=== PATIENT | female | born 1960 | race American Indian/Alaskan Native ===

== ENCOUNTER 2018-06-25 10:55 | Outpatient (CLI) | payer BC | END 2018-06-25 10:56 | disposition home or self-care (01) | LOC: C.RADH 10:55 ==

== ENCOUNTER 2018-07-17 09:25 | Outpatient (CLI) | payer BC | END 2018-07-17 09:26 | disposition home or self-care (01) | LOC: C.PAT 09:25 | DX: S83.231A Complex tear of medial meniscus, current injury, right knee, initial encounter (principal); S83.271A Complex tear of lateral meniscus, current injury, right knee, initial encounter; M67.51 Plica syndrome, right knee; M67.861 Other specified disorders of synovium, right knee ==

== ENCOUNTER 2018-08-03 07:12 | Day surgery (SDC) | payer BC ==
[2018-07-17 09:38] VITALS: BMI 29.3
[2018-08-03] MEDS ORDERED: ceFAZolin 1 gm in NS 2 GM/200 ML BAG IVPB ONE (10:12)
[2018-08-03] MEDS ORDERED: Midazolam 2 MG/2 ML VIAL ONE (11:57)
[2018-08-03] MEDS ORDERED: Propofol 10 mg/ml Inj (20 ML) ONE (11:58)
[2018-08-03] MEDS ORDERED: ceFAZolin 1 gm in NS 1 GM/100 ML BAG IVPB ONE (12:24)
[2018-08-03] MEDS ORDERED: Succinylcholine Chloride 20 mg/ml Syr (5 ml) IV ONE (12:41)
[2018-08-03] MEDS ORDERED: Rocuronium 10 mg/ml (10 ml) ONE ×2 (12:41→14:12)
[2018-08-03] MEDS ORDERED: Oxycodone/Acetaminophen 5/325 mg Tab PO PRN ×2 (14:54)
[2018-08-03] MEDS ORDERED: Neostigmine 1:1000 (1 mg/ml) Inj ONE (15:05)
[2018-08-03] MEDS ORDERED: Midazolam 2 MG/2 ML VIAL IVP PRN (15:22)
[2018-08-03] MEDS ORDERED: Lactated Ringer's 1,000 ML IV ONE (15:23)
[2018-08-03] MEDS: HYDROmorphone 0.5 mg/0.5 ml ISec IVP PRN ×2 (16:18→16:55)
[2018-08-03] MEDS ORDERED: Ropivacaine 0.5% PF (20 ml) inj INJ ONE (16:39)
--- NOTE | 2018-08-03 17:08 | PCM.ANESB7 ---
Adductor Canal Block - Adductor Canal Block Date of Procedure: 08/03/18 Anesthiologist: Zulema Pre-Procedure Diagnosis: Right Meniscal Tear Post-Procedure Diagnosis: Right Meniscal Tear Procedure Performed: Adductor Canal Block Right - Procedure Adductor Canal Block: The procedure was explained to the patient that it is for the post-operative pain management. Consent was obtained after a thorough discussion with the patient regarding the benefits and possible complications of local anesthetic adductor canal block of the femoral nerve. Standard monitors, as defined by the ASA, were applied to the patient. Time-out was held with the circulating nurse to confirm the appropriate block. After applying supplemental oxygen and administering IV Sedation as needed, the patient was placed in supine position with and the operative leg was flexed slightly at the knee and externally rotated as needed, and was kept anatomically stable. The mid-thigh of the __right__ lower extremity was exposed. The ultrasound transducer was then applied transversely along the medial aspect, about midway down the thigh and the femoral artery and vein were identified in appropriate relation with the sartorius muscle. At this time, the femoral nerve was visualized lateral to the femoral artery within the canal. After thorough identification, this area area was prepped with Chloroprep solution three times and 1 % Lidocaine was injected subcutaneously for topical anesthesia. At this point, a #22 gauge Stimuplex 4-inch needle was inserted in-plane in a [id number] orientation, and advanced toward the femoral nerve. Advancement was performed carefully under direct ultrasound visualization. After negative aspiration, __20_cc of _0.5_% _ropivicaine was injected. Under ultrasound guidance the local anesthetics were observed spreading around the femoral nerve. The needle was removed intact and sterile dressing was applied. The patient had stable vital signs, was conscious and in no apparent distress.
[2018-08-03 18:11] VITALS: RESP 16
[2018-08-03 18:57] VITALS: BP 143/81; PULSE 81; TEMP 97.9; O2SAT 97
--- NOTE | 2018-08-05 02:35 | PCM.SURG1 ---
Surgeon's Initial Post Op Note - Surgeon's Notes Surgeon: Tu Oleary MD Iron Installer: Juan Gomes PA-C Type of Anesthesia: General Endo, Block [facility] Pre-Operative Diagnosis: Right knee: #1 medial meniscal tear. #2 lateral mensical tear. #3 possible partial ACL tear (clinical instability grade 2). #4 synovitis. #5 chondromalacia. #6 valgus alignment Operative Findings: Right knee: #1 medial meniscal tear (2 zones of injury= free edge complex tear, white-white zone, not repairable/ peripheral red-red zone posterior horn menisco-capsular seperation, repairable). #2 lateral mensical tear (4 zones of injury= posterior horn/mid-body/ anterior horn complex, segmental, flap tears, not repairable/ peripheral red-red zone posterior horn tear w/ hypermobility, repairable-stabilized). #3 Complete ACL tear (both bundles, complete avulsion from LFC insertion, scared down to posterior capsule, PCL, and MFC/ remnant fibers good quality, amenable to primary repair). #4 synovitis all 3 compartments. 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 #6 lateral patellar maltracking grade 2. #7 symptomatic medial and lateral plica bands. #8 hypertrophic, inflamed anterior fat pad (causing anterior and PF impingement). #9 valgus alignment Post-Operative Diagnosis: Right knee: #1 medial meniscal tear (2 zones of injury= free edge complex tear, white-white zone, not repairable/ peripheral red-red zone posterior horn menisco-capsular seperation, repairable). #2 lateral mensical tear (4 zones of injury= posterior horn/mid-body/ anterior horn complex, segmental, flap tears, not repairable/ peripheral red-red zone posterior horn tear w/ hypermobility, repairable-stabilized). #3 Complete ACL tear (both bundles, complete avulsion from LFC insertion, scared down to posterior capsule, PCL, and MFC/ remnant fibers good quality, amenable to primary repair). #4 synovitis all 3 compartments. 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 #6 lateral patellar maltracking grade 2. #7 symptomatic medial and lateral plica bands. #8 hypertrophic, inflamed anterior fat pad (causing anterior and PF impingement). #9 valgus alignment Operation Performed: Right knee Arthroscopic: #1 primary ACL repair. #2 all inside medial meniscal repair. #3 partial lateral menisectomy. #4 lateral retinacular release. #5 extensive synovectomy all 3 compartments. #6 resection medial and lateral plica bands. #7 resection and debridement hypertrophic fat pad. #8 chondroplasty and microfracture LFC & lateral plateau. #9 intra- articular PRP injection Specimen/Specimens Removed: specimen= none. tourniquet time= 0min. complications= none. Implants: #1 Arthrex 4.75 mm biocomposite swivel lock anchors x2 and fiberwire for ACl repair. #2 Linvatex meniscal repair system, 8 implants used for MMR (2 kits), 4 implants used for LM stabilization after PLM (1 kit). I personally examined the pt post-op in PACU, NVI post-op. +5/5 motor function,. DPN/TN/SPN sensory intact,. 2+ DP & PT pulses, BCR all toes Estimated Blood Loss: EBL {In ML}: 3 Blood Products Given: N/A Drains Used: No Drains Post-Op Condition: Good Date of Surgery/Procedure: 08/03/18 Time of Surgery/Procedure: 12:00
--- NOTE | 2018-08-05 14:35 | OP ---
PROCEDURE DATE: 08/03/2018 PREOPERATIVE DIAGNOSES: Right knee: 1. Lateral meniscal tear. 2. Medial meniscal tear. 3. Possible partial anterior cruciate ligament tear (clinical instability grade 2). 4. Synovitis. 5. Chondromalacia. 6. Valgus alignment. POSTOPERATIVE DIAGNOSES: Right knee: 1. Medial meniscal tear (two zones of injury = free edge complex tear, white-white zone, not repairable/peripheral red-red zone, posterior horn meniscal capsular separation, repairable). 2. Lateral meniscal tear (four zones of injury = posterior horn/mid body/anterior horn complex, segmental, flap tears, not repairable/peripheral red-red zone, posterior horn tear with hypermobility, repairable-stabilized). 3. Complete anterior cruciate ligament tear (both bundles showed complete evulsion from lateral femoral condyle insertion with remnant fibers of good quality scar down to posterior capsule, posterior cruciate ligament, medial femoral condyle/remnant fibers were of good quality and amendable to primary repair). 4. Synovitis, all three compartments. 5. Chondromalacia, lateral femoral condyle and lateral tibial plateau (focal areas of grade 4 full thickness, cartilage loss at lateral tibial plateau, posterior aspect measuring 3 mm x 6 mm and lateral femoral condyle anterior aspect measuring 5 mm x 5 mm). 6. Lateral patellar maltracking grade 2. 7. Symptomatic medial and lateral thickened plica bands. 8. Hypertrophic, inflamed anterior fat pad (causing anterior and patellofemoral impingement). 9. Valgus alignment. PROCEDURES: Right knee arthroscopic: 1. Primary anterior cruciate ligament repair. 2. All-inside medial meniscal repair. 3. Partial lateral meniscectomy. 4. Lateral retinacular release. 5. Extensive synovectomy, all three compartments. 6. Resection of medial and lateral symptomatic plica bands. 7. Resection and debridement of hypertrophic fat pad. 8. Chondroplasty and micro fracture, lateral femoral condyle and lateral tibial plateau. 9. Intraarticular platelet-rich plasma injection. SURGEON: Tu Oleary MD HOUSE BUILDER: Juan Gomes PA-C JUSTIFICATION FOR HOUSE BUILDER: Juan Gomes PA-C is a certified physician regulatory assistant whose skilled surgical assistance was an absolute necessity for successful completion of the procedure as he provided skilled surgical assistance with positioning of the patient, positioning of extremity, management of surgical youssef, retraction of neurovascular structures, preparation of remnant ACL fibers and successful primary ACL repair of both bundles, chondroplasty, and microfracture lateral femoral condyle and lateral tibial plateau, facilitating all-inside medial meniscus repair, partial lateral meniscectomy and lateral meniscus stabilization, handling of arthroscopic equipments and extensive synovectomy including resection of plica bands and hypertrophic fat pad, wound closure, fitting and placement in postop hinged knee brace. Juan Gomes, was present for the entire case and was an absolute necessity for successful completion of the procedure. TYPE OF ANESTHESIA: General endotracheal anesthesia with a postop regional nerve block placed by anesthesia staff in PACU. SPECIMENS: None. TOURNIQUET TIME: Zero minutes. COMPLICATIONS: None. ESTIMATED BLOOD LOSS: 3 mL. DRAINS: None. DISPOSITION: The patient was extubated and transferred to the PACU in stable condition and tolerated the procedure well. POSTOPERATIVE EXAMINATION: I personally examined the patient postop in PACU, right lower extremity was neurovascularly intact postop with +5/5 motor function all muscle groups, sensory intact, deep perineal nerves/tibial nerves/superficial perineal nerves, 2+ dorsalis pedis and posterior tibial pulses with brisk capillary refill all toes confirmed with Doppler by myself and nursing staff in PACU. IMPLANTS: 1. Arthrex 4.75 mm BioComposite SwiveLock anchors x2. 2. FiberWire suture for ACL repair. LinvateDattch: Sequent all-inside meniscal repair system with use of 8 implants used for medial meniscus repair (two kits), 4 implants used for lateral meniscus stabilization after partial lateral meniscectomy (1 kit opened). INDICATIONS FOR SURGERY: The patient is a 57-year-old female with past medical history significant for hypertension, hypercholesterolemia, who presented to the office for the first time under my care on 04/17/2018 with right knee pain since 02/11/2018. She states that she had a traumatic event where on 02/11/2018 she was walking down steps at home and missed steps resulting in twisting mechanism to her right knee. This resulted in progressively worsening pain, that by 02/13/2018, she actually required help from her to be carried into bed due to her right knee pain and instability as well as difficulty with weightbearing. She went to urgent care, [facility], where she was diagnosed with a sprain and instructed to follow up with an orthopedic surgeon as an outpatient. She also saw her primary care physician, Dr. Headley, who referred her for orthopedic evaluation. Evaluation/physical examination in the office on initial presentation on 02/15/2018 showed medial and lateral positive Maye and joint line tenderness with clicking and suspected medial and lateral meniscal tears, grade 2 ACL instability with an endpoint, overall valgus alignments. X-rays done in the office on 02/15/2018 showed joint spaces well maintained with no evidence of DJD, no fracture dislocation. Her pain continued to worsen, and on initial presentation in the office, she rated her pain as 7/10 at rest, worsening to 10/10 with increased activity and ambulation. She was having difficulty at work, she works as a [employer] tech for [employer] and was having difficulty with ADLs stating that this was a significant negative impact on her quality of life. We began her treatment with conservative treatment, consisting of initial cortisone intraarticular injection that resulted in reported near complete resolution of pain and fitting and placement in the Neoprene hinged knee brace for support/[id number] ACL brace to stabilize the knee and prevent from further injury as well as maximize the chances of successful conservative treatments. She was compliant with physical therapy, recommendation as well as Mobic, antiinflammatory medication and antiinflammatory cream. She underwent MRI of the right knee done at [facility] on 04/20/2018, which was read as: 1. Complex tear seen at the junction of the anterior horn and body of the lateral meniscus with additional globular increased signal extending into the anterior horn. At the level of the anterior horn, there is an adjacent 2.5 mm parameniscal cyst. 2. Moderate cartilage thinning and loss involving the lateral compartment of the femoral tibial joint space. In addition, there is osteochondral change, lateral proximal tibia. 3. Moderate great sprain of MCL. 4. Linear increased signal seen within the posterior horn of the medial meniscus suggestive for grade I intrasubstance degeneration and/or intrasubstance partial tearing. Adjacent moderate great strain at the posterior meniscal capsular junction. 5. Thickening with increased signal seen at the medial and lateral patellar retinaculum suggestive for moderate grade sprains. 6. Mild cartilage thinning involving the medial compartment. 7. Small superpatellar joint effusion. 8. Small posterior Hart cyst. 9. We continued with maximizing her conservative treatment as much as possible over the next five months. She underwent multiple cortisone mixture injection, including right knee cortisone mixture injection on 02/15/2018, 05/17/2018, 06/07/2018, and 07/09/2018. Each injection resulted in near complete resolution of pain that would last approximately 1 to 2 weeks and progressively return back to baseline level of pain and dysfunction. She was compliant with physical therapy recommendations despite the fact that she reported physical therapy making her pain worse. Finally after failing conservative treatment for five months post injury, she was indicative for right knee arthroscopic surgery including evaluation of ACL and possible ACL repair, medial and lateral meniscal repairs versus partial meniscectomy, cartilage treatment including chondroplasty versus microfracture, synovectomy, and all related indicated arthroscopic procedures. She was referred to her primary care physician, Dr. Headley for preoperative medical evaluation and clearance as well as PATs, and she was scheduled for surgery at [facility] on 08/03/2018. She watched surgical animation videos and diagnosis animation videos, and stated that she had a good understanding of the diagnosis as well as the procedure to be done. The risks, benefits, and alternatives to the procedure were discussed at length with the patient and her with the risks including, but not limited to infection, neurovascular damage, need for further surgery, failure of repairs, advanced chondrolysis and degenerative wear, development of blood clots including DVT and PE, development of chronic pain and disability, stiffness, need for manipulation under anesthesia, inability to return to preinjury level of activity, and occupation, anesthesia reactions including . After answering all of her questions, she stated that she had a good understanding of the risks and accepted the risks and wished to proceed with surgery. I also spent a significant amount of time, revealing the postoperative rehabilitation protocol and she stated that she had a good understanding of the protocol and the need for compliance with protocol in order to maximize the chances for successful outcome from surgery. Associated with the same date of injury, she also had significant progressively worsening right shoulder pain with MRI confirmation of a rotator cuff tear, labral tear, subacromial impingement, and bursitis with clinical biceps tendinitis. Right shoulder will be managed with conservative treatments including physical therapy and injections until she completely recovers from the right knee surgery, at which point we will consider arthroscopic right shoulder surgery if she is still in pain and failed conservative treatment. The rationale to perform the right knee surgery first was based on her report of which body part was causing more pain, and the fact that performing the right knee surgery after the shoulder surgery put potentially in danger and re-aggravate the shoulder with . We agreed on the above treatment plan. My review of the MRI of the right knee showed that there was significant peripheral signal change at the medial meniscus with a likely peripheral tear, lateral meniscus showed complex tearing throughout, ACL in my opinion had significant at least partial tearing with possible evulsion and good quality remnant fibers. Despite the radiologist's interpretation of intact ACL clinically she had consistent grade 2 instability with an endpoint. PROCEDURE IN DETAIL: The patient was identified in the preoperative holding area, and the right knee was marked for surgery. Once again as described above, the risks, benefits, and alternatives of the procedure were discussed at length with the patient and informed consent was obtained. After brief discussion with anesthesia staff, the patient was taken to the operating room and placed on a well-padded operating room table with all bony prominences and superficial neurovascular structures well padded. Initial time-out was done. General anesthesia was administered without difficulty or complications. EXAMINATION UNDER ANESTHESIA: Right knee with no swelling, no warmth, no erythema. Skin intact. Full range of motion compared to contralateral limb. Patella with grade 2 lateral maltracking and subluxation with no soledad instability noted, positive J sign, no crepitance with patella arch of range of motion. There was reproducible symptomatic plica bands throughout arch of range of motion most notable at 30 degrees flexion. There was significant ACL instability with grade 3 anterior drawer and neutral and external rotation, grade 2 anterior drawer and internal rotation with an endpoint, grade 2-3 Petey with an endpoint, grade 2 pivot shift, negative posterior drawer, negative reverse Petey, negative reverse pivot shift, negative posterolateral corner drawer test, negative dial test, negative recurvatum, negative opening to lateral or medial joint line at 0 or 30 degrees varus or valgus stress, there was overall mild valgus alignment. CONTINUATION OF PROCEDURE: Perioperative IV antibiotics were administered. Tourniquet was placed high on the right thigh, but never inflated. Right lower extremity was prepped and draped in a standard sterile fashion. Final time-out was done with the surgeon, anesthesia staff, OR staff, all in agreement with the patient, procedure being done, and extremity being operated on. A 50 mL of normal saline was used to insufflate the knee joint. Anterolateral portal was created with stab incision through the skin down to subcutaneous tissue down to the level of the capsule. Blunt arthroscopic trocar and cannula were inserted into the suprapatellar pouch, and insufflation with arthroscopic fluid was begun. Arthroscopic camera was inserted, and with the use of spinal needle localization, anterior medial portal location was identified and created with stab incision to skin down to subcutaneous tissue down to the level of capsule. An accessory cannula was inserted through the anteromedial portal, and the knee joint was copiously irrigated for removal of synovial debris and better visualization. With the use of an arthroscopic probe, a diagnostic arthroscopy was then carried out. DIAGNOSTIC ARTHROSCOPY: Attention was first turned towards the suprapatellar pouch where there was no evidence of adhesions or loose body, patellar femoral joint exhibited intact, patella and trochlea cartilage with grade 2 laterally subluxed patella with no soledad dislocation and instability seen. Attention was then turned towards the medial gutters where there was no evidence of loose bodies, but there was obvious thickened hypertrophic inflamed symptomatic medial plica band causing friction with the medial femoral condyle extending from the inferior medial aspect of the patella to the medial retinaculum. There was also a significant hypertrophic lateral symptomatic plica band causing the same constellation. Attention was then turned towards the medial compartment where intact medial femoral condyle and medial tibial plateau cartilage was seen. The medial meniscus after a careful evaluation showed a 2 cm peripheral red-red zone posterior horn tear at the meniscal capsular junction that was amenable to repair with good quality meniscal tissue present. The free edge of the medial meniscus displayed complex tearing at the white-white zone that was not amendable to repair. Attention was then turned towards the intercondylar notch, and the PCL was evaluated and found to be intact. ACL was carefully evaluated in detail, and there were significant tears in line with the fibers with ACL buckling seen and attenuation. After careful evaluation and tracing, the anterior medial and posterior lateral bundles to the lateral femoral condyle, it was obvious that this was a complete evulsion of both the anterior medial and posterior lateral bundles form the lateral femoral condyle insertion with the remnant fibers of good quality and scar down to the posterior capsule, PCL, medial femoral condyle which explained the grade 2 instability with endpoint. Attention was then turned towards the lateral compartments, where immediately seen was complex segmental flap tearing with four main zones of injury at the lateral meniscus including complex segmental flap tearing of the posterior horn, mid body, and anterior horn. The posterior horn of the lateral meniscus exhibited significant hypermobility of the residual posterior horn fibers with a peripheral tear seen at the anterior aspect of the popliteal hiatus extending from the anterior aspect of the popliteal hiatus anteriorly into the posterior horn-mid body junction. The lateral femoral condyle and lateral tibial plateau exhibited intact cartilage, mostly on most of the articular surface with focal areas of grade 4 chondral loss down to subchondral bone at the posterior aspect of the lateral tibial plateau measuring approximately 5 mm x 5 mm and focal area at the anterior aspect of the lateral femoral condyle measuring 5 mm x 5 mm as well. Throughout all three compartments of the knee, there was significant hypertrophic inflamed synovitis. At the anterior aspect of the knee, there was hypertrophic and inflamed anterior fat pad causing significant impingement and symptomatic anterior and patellofemoral impingement. CONTINUATION OF PROCEDURE: ARTHROSCOPIC PARTIAL LATERAL MENISCECTOMY: With the use of arthroscopic shaver and radiofrequency ablation and meniscal biters, a partial lateral meniscectomy was carried out, resecting approximately 50% of the lateral meniscus overall. As we reached this critical value of remnant lateral meniscus essential for joint preservation of the lateral compartment, the remnant posterior horn lateral meniscus tissue was carefully evaluated. As stated before, there was significant hypermobility present with a peripheral red-red zone tear extending from the anterior aspect of the popliteal hiatus, working its way anteriorly into the mid body-posterior horn junction. The remnant posterior horn meniscal tissue appeared to be of good quality, and an attempt at stabilization of the posterior horn was carried out. With the use of the Linvatec all-inside meniscal repair system, four implants were placed in total at the posterior horn just anterior to the popliteal hiatus to restore stability. Prior to the stabilization, the entire posterior horn of lateral meniscus was able to be subluxed past the midpoint of the lateral femoral condyle into the anterior aspect of the knee joints. The repair/stabilization was carried out with placement of four implants with good capsular-sided fixation resulting in three vertical mattresses sutures, placed just anterior to the popliteal hiatus with good stability achieved. With the use of arthroscopic probe, this was tested and indeed the stability to the remnant lateral meniscus posterior horn tissue was established, and more normal physiologic motion of the lateral meniscus was seen with inability to sublux the posterior horn beyond the midpoint of the lateral femoral condyle. ARTHROSCOPIC ALL-INSIDE MEDIAL MENISCAL REPAIR: With the use of arthroscopic shaver, radiofrequency ablation, and meniscal biters, a very conservative partial medial meniscectomy was carried resecting the torn white-white zone free edge fibers of the medial meniscus mid body to posterior horn that were no amendable to repair. Once a smooth contour was established and the partial medial meniscectomy was completed less than 5% to 10% of the medial meniscus was resected overall. As stated before, there was a 2 cm peripheral red-red zone posterior horn meniscal capsular separation with good quality meniscal tissue present. With the use of the MediTAP all-inside meniscal repair system and all-inside medial meniscus repair was carried out with placement of eight implants in total. We started with placement of four implants at the superior aspect of the medial meniscus posterior horn, resulting in good capsular-sided fixation and three horizontal mattress sutures reducing and stabilizing the posterior horn to the posterior medial capsule. These steps were then repeated again at the inferior aspect of the posterior horn to restore adequate hoop stress and reinforce the superior surface medial meniscal repair. With the use of arthroscopic probe, the construct was tested and indeed a successful stable all-inside medial meniscal repair was carried out. ARTHROSCOPIC PRIMARY ANTERIOR CRUCIATE LIGAMENT REPAIR: With the use of arthroscopic shaver and radiofrequency ablation, the poor quality anterior medial and posterior lateral bundle fibers were resected and debrided. Overlying ligamentum and synovium over the lateral femoral condyle and insertion of the anterior medial and posterior lateral bundles at the lateral femoral condyle was debrided and marked. The anteromedial and posterolateral bundle fibers were identified and visually. The posterior wall of the lateral femoral condyle was also visualized and noted to avoid posterior breakout. With the use of the meniscal scorpion from Arthrex, we began with passage of suture through the posterior lateral bundle. A #2 FiberWire suture was passed starting at the distal aspect of the posterior lateral bundle at the tibial insertion and working away proximally to the femoral side of the posterior lateral bundle. Approximately 4 to 5 passes with the #2 FiberWire sutures zigzagging through the posterolateral bundle was carried out. To the reinforce the construct 1 FiberWire cinch suture was also passed mid substance with a good bite of the posterolateral bundle. An accessory incision was made superior just inferior to the inferior pole of the patella as a small 1 cm stab incision to pass the sutures from the posterior lateral bundle and maintain good suture management. The anterior medial portal had been expanded and a PassPort cannula had been placed to also facilitate good suture management and void soft tissue bridge. With the use of the meniscal scorpion from Arthrex, again the steps for placement of #2 FiberWire suture and a cinch suture were repeated for the anterior medial bundle with good suture management and screen printing machine operator of the anterior medial bundle fibers successfully carried out with the suture beginning at the distal aspect of the anterior medial bundle and working away proximally to the femoral side to the end of the fibers. With the cinch suture placed, mid substance at the anterior medial bundle with a good bite and screen printing machine operator on the anterior medial bundle as well. Optimal insertion points at the lateral femoral condyle with good isometric biomechanical points were identified for the anteromedial and posterolateral anchor fixation for the suture. A 4.75 BioComposite SwiveLock anchor from Arthrex was selected for the posterior lateral bundle repair. With the use of the punch, the insertion site at the [place] posterior lateral bundle insertion at the lateral femoral condyle was prepared, and the suture from the posterior lateral bundle were passed through the SwiveLock anchor and the anchor was carefully and successfully placed with good fixation achieved at the lateral femoral condyle, reducing and repairing the posterior lateral bundle back to its need of insertion point. These steps were then repeated for placement of a second 4.75 BioComposite SwiveLock anchor from Arthrex for the anterior medial bundle repair. This was carried out successfully after the insertion point was prepared, and the anchor was placed with good tension achieved on the ACL anterior medial and posterior lateral bundles overall. With the use arthroscopic probe, the tension of the ACL was evaluated and indeed good tension was achieved with no residual attenuation or ACL buckling present. Clinically, ACL stability had been restored with negative anterior drawer, negative Petey, negative pivot shift. ARTHROSCOPIC CHONDROPLASTY AND MICROFRACTURE LATERAL TIBIAL PLATEAU AND LATERAL FEMORAL CONDYLE: With the use of arthroscopic shaver and radiofrequency ablation, chondroplasty was carried out establishing a smooth rim of cartilage at the two focal zones of injury of full thickness cartilage loss down to subchondral bone at the lateral femoral condyle anterior aspect and the lateral tibial plateau. With a smooth stable rim of cartilage established, the microfracture os was used to place microfracture holes with good spacing. We established good bloody return at the microfracture holes at both the lateral tibial plateau and lateral femoral condyle. ARTHROSCOPIC LATERAL RETINACULAR RELEASE: With the use of the arthroscopic shave and radiofrequency ablation, under direct arthroscopic visualization, the lateral retinaculum and ITB patellar ligament band was released from its most deep fibers working superficial. Once the lateral release was carried out successfully, arthroscopic evaluation of the patella within the trochlea showed good mormonism of patellar tracking with well-seated patella within the trochlea and a successful lateral release carried out. ARTHROSCOPIC EXTENSIVE SYNOVECTOMY: With the use of arthroscopic shaver and radiofrequency ablation, an extensive synovectomy was carried out beyond what is considered usual and customary for better visualization during arthroscopic surgery. A significant amount of surgical time was dedicated to this portion of the procedure, as the extensive synovectomy was utilized to resect and debride and perform a synovectomy in all three compartments of the knee while maintaining good hemostasis. The medial and lateral symptomatic plica bands were also resected and debrided successfully. The hypertrophic and inflamed anterior fat pad causing anterior impingement and patellar femoral impingement was resected and debrided, all while maintaining good hemostasis. Again, this extensive synovectomy was carried out beyond what is normally utilized for better visualization during arthroscopic surgery and a significant amount of surgical time was dedicated to performing the successful extensive synovectomy and completing the treatment tasks of resecting the symptomatic hypertrophic medial and lateral plica bands, synovectomy of all three compartments, debridement of the hypertrophic fat pad that was causing anterior and patellofemoral impingement. ARTHROSCOPIC INTRAARTICULAR PLATELET-RICH PLASMA INJECTION: With the help of anesthesia staff, a peripheral venous stick was carried out and the venous blood was spun in the [employer]rex Centrifuge yielding 5 mL of PRP overall. After final arthroscopic imaging was taken with evaluation of the successful ACL repair, all-inside medial meniscal repair, partial lateral meniscectomy with stabilization, chondroplasty and microfracture, extensive synovectomy, lateral retinacular release, all arthroscopic debris and fluid was removed from the knee joint. The 5 mL of PRP was injected intraarticular under direct arthroscopic visualization. The arthroscopic portals were then reapproximated with 2-0 Vicryl suture for deep tissue followed by 3-0 Monocryl suture for skin. Sterile dressings were applied, followed by a layer of sterile cast padding from the toes up to the superior thigh, following by layer of compressive SHAHLA wrap from the toes up to the superior thigh. A postop hinged knee brace provided by my office was then fitted and placed on the patient's right lower extremity. The brace was placed out of absolute medical necessity to protect and facilitate successful healing of the ACL repair, meniscus repairs, lateral retinacular release, micro fracture and chondroplasty, synovectomy. With the postop hinged knee brace locked at 0 degrees extension, the patient would be able to be weightbearing as tolerated as the microfracture areas were at the posterior aspect of the lateral tibial plateau and the anterior aspect of the lateral femoral condyle. She will also be able to unlock the brace and work on range of motion without endangering her ACL repair or meniscus repairs when she is not ambulating and weightbearing. Once the postop hinged knee brace was fitted and placed on the patient and locked at 0 degrees extension, she was then extubated and transferred to PACU in stable condition and tolerated the procedure well. JUSTIFICATION FOR BILLING AND CODIN. Arthroscopic primary ACL repair was successful carried out and therefore was coded and billed. 2. All-inside medial meniscal repair was carried out successfully and therefore was coded and billed. 3. Arthroscopic partial lateral meniscectomy was carried out resecting 40% to 50% of the lateral meniscus with a stabilization of the remnant posterior horn fibers carried out as well. The main stay of treatment for the lateral meniscus was partial lateral meniscectomy, and therefore, partial lateral meniscectomy was coded and billed. 4. Lateral retinacular release was carried out successfully restoring and treating the lateral patellar maltracking and therefore was coded and billed. 5. Chondroplasty and microfracture of lateral tibial plateau and lateral femoral condyle was carried out successfully and therefore was coded and billed. 6. An extensive synovectomy was carried out beyond what is considered usual and customary for better visualization during arthroscopic surgery with a significant amount of surgical time dedicated to arthroscopic synovectomy of all three compartments with resection and debridement of symptomatic medial and lateral plica bands as well as resection and debridement of the symptomatic hypertrophic inflamed fat pad causing anterior and patella femoral impingement. Therefore, extensive synovectomy was coded and billed, CPT 40541. 7. Intraarticular platelet-rich plasma injection was placed at the end of the procedure under direct arthroscopic visualization, and therefore was coded and billed, CPT 0232T. 8. A postop hinged knee brace provided by my office was fitted and placed on the patient at the end of the procedure, placed out of absolute medical necessity to protect and maximize the chances of successful healing of multiple products of the surgery including the ACL repair, medial meniscus repair, lateral meniscus stabilization, microfractures and lateral retinacular release. Therefore, the postop hinged knee brace provided by my office and dispensed on the day of surgery and fitted and placed, and the patient was coded and billed as DME code of 1833. DISPOSITION: The patient will be discharged home once she is recovered from anesthesia. She can be weightbearing as tolerated to the right lower extremity with the postop hinged knee brace locked at 0 degrees extension. She was given a prescription for Percocet for pain control. She was given a prescription for Lovenox 40 mg subcutaneous injection as DVT prophylaxis starting postoperative day #1 and continuing for two weeks postoperatively. She will contact me directly with any questions or concerns. She is instructed to keep the dressings clean, dry, and intact as well as the brace on at all times. She will follow up in my office at [facility] within one week and already has her postoperative appointment setup. Tu Oleary MD
== END 2018-08-03 18:55 | disposition home or self-care (01) ==
LOC: C.SDS 07:12
PROVIDERS: ATTEND Student in an Organized Health Care Education/Training Program
DX: S83.231A Complex tear of medial meniscus, current injury, right knee, initial encounter (principal); S83.271A Complex tear of lateral meniscus, current injury, right knee, initial encounter; M67.861 Other specified disorders of synovium, right knee; M94.261 Chondromalacia, right knee
CPT/HCPCS: 29876; 29880; 29888; 29999; 97116; 97161; C1713; C1751; G0289; G8978; G8979; G8980; J0171; J0690; J1170; J2001; J2250; J2704; J2710; J3010; J7120